=== PATIENT | male | born 1965 | race Caucasian/White ===

== ENCOUNTER 2018-04-02 07:09 | Outpatient (CLI) | payer OTHER | END 2018-04-02 07:24 | disposition home or self-care (01) | LOC: NUCLEAR 07:09 | DX: I20.0 Unstable angina (principal); I11.9 Hypertensive heart disease without heart failure; E78.2 Mixed hyperlipidemia; I25.10 Atherosclerotic heart disease of native coronary artery without angina pectoris | CPT/HCPCS: 78452; 93017; 93306; A9500 ==